=== PATIENT | female | born 1930 | race Caucasian/White ===

== ENCOUNTER 2016-09-17 08:45 | Day surgery (SDC) | payer MEDICARE ==
[~2016-09-17 08:45] MED LIST: AMBIEN5 MG PO; BENTYL10 M1 PO; BENTYL20 MG; BONIVA; BONIVA150 MG PO; CALCIUM 600 MG1 EAC2 PO; CO Q-10100 MG PO; CYTOTEC100 MCG PO; ESTRADERM TD; ETODOLAC; FOLIC ACID1 MG PO; HYDROCODONE/APA1 TAB; IMODIUM A-D2 M4 PO; LABETALOL HCL100 M1 PO; LEVOTHYROXINE50 MC3 PO; LIPITOR10 M1 PO; LODINE400 MG; METHOTREX; METHOTREXATE; METHOTREXATE2.5 MG PO; MULTIPLE VITAM1 EAC3 PO; NEURONTIN300 MG PO; OMEPRAZOLE20 M2 PO; PLAQUENIL200 M1 PO; PLAQUENIL200 MG; PLAVIX75 M1 PO; PREDNISONE10 M1 PO; PREDNISONE5 MG; PROCHLORPERAZINE5 M1 PO; PROLIA60 MG/1 M1 SC; REGLAN; REMICADE100 MG IV; ROBAXIN-750750 M1 PO; VICODIN 5/500 T1 TAB PO; VITAMIN B12-FO1 EAC1 PO; VITAMIN C500 M3 PO; VITAMIN D-50000 IU/C PO; XANAX0.5 M1 PO; [UNRECOGNIZED DRUG - OTHER] TD
[2016-09-17 09:51] LABS: BASO % 0.3 % (0-2); HCT-HEMATOCRIT 29.5 % (34.0-49.0); HGB-HEMOGLOBIN 9.8 gm/dl (12.0-15.5); IMMATURE GRANULOCYTES ABSOLUTE 0.01 tho/cmm (0-0.03); IMMATURE GRANULOCYTES PERCENT 0.1 % (0-0.3); LYMPH % 8.1 % (20-45); LYMPH ABSOLUTE COUNT 0.7 tho/cmm (0.8-4.5); MCH (MEAN CORPUSCULAR HGB) 29.9 pg (28.0-32.0); MCHC MEAN CORPUSCULAR HGB CONC 33.2 % (32.0-36.0); MCV (MEAN CELL VOLUME) 89.9 fl (82.0-96.0); MEAN PLATELET VOLUME 10.4 cmc (9.4-12.4); MONO % 10.9 % (0-12); NEUTROPHILS % 80.6 % (40-80); PLATELET COUNT 343 tho/cmm (150-450); RED BLOOD COUNT 3.28 mil/cmm (4.00-5.20); RED CELL DISTRIBUTION WIDTH 13.6 % (12.4-16.4); WHITE BLOOD COUNT 8.7 tho/cmm (4.0-10.0)
[2016-09-17 09:54] LABS: PROTHROMBIN TIME 11.9 SECONDS (9.0-13.6)
== END 2016-09-17 12:40 ==
LOC: US 08:45 → SHSB 08:49
PROVIDERS: Radiology Diagnostic Radiology
PROC: 0FB03ZX Excision of Liver, Percutaneous Approach, Diagnostic (ICD-10-PCS; principal; 2016-09-17)
DX: C22.9 Malignant neoplasm of liver, not specified as primary or secondary (principal); M06.9 Rheumatoid arthritis, unspecified; M81.0 Age-related osteoporosis without current pathological fracture; I12.9 Hypertensive chronic kidney disease with stage 1 through stage 4 chronic kidney disease, or unspecified chronic kidney disease; N18.9 Chronic kidney disease, unspecified; I27.2 Other secondary pulmonary hypertension; E55.9 Vitamin D deficiency, unspecified; E78.5 Hyperlipidemia, unspecified; E03.9 Hypothyroidism, unspecified; G89.29 Other chronic pain; M48.06 Spinal stenosis, lumbar region; K58.9 Irritable bowel syndrome, unspecified; K27.9 Peptic ulcer, site unspecified, unspecified as acute or chronic, without hemorrhage or perforation; Z90.711 Acquired absence of uterus with remaining cervical stump; Z98.890 Other specified postprocedural states; Z90.49 Acquired absence of other specified parts of digestive tract; Z79.899 Other long term (current) drug therapy; Z79.52 Long term (current) use of systemic steroids; Z88.0 Allergy status to penicillin
CPT/HCPCS: J3010; J7030